=== PATIENT | male | born 1990 | race Caucasian/White ===

== ENCOUNTER 2019-08-03 14:22 | Outpatient (CLI) | payer OTHER | END 2019-08-03 14:52 | disposition home or self-care (01) | LOC: LAB 14:22 | DX: J11.1 Influenza due to unidentified influenza virus with other respiratory manifestations (principal) ==

== ENCOUNTER 2020-08-25 16:01 | Emergency (ER) | payer OTHER ==
[~2020-08-25] VITALS: Ht 177.8 cm; Wt 99.8 kg
[2020-08-25] MEDS ORDERED: MEDROLPACK PO (20:49)
[2020-08-25] MEDS ORDERED: MUCINEX DM ER1 EAC1 PO (20:49)
[2020-08-25] MEDS ORDERED: PROAIR RESPICL90 MCG IH (20:49)
== END 2020-08-25 20:55 | disposition home or self-care (01) ==
LOC: ER 16:01
DX: J06.9 Acute upper respiratory infection, unspecified (principal); J20.9 Acute bronchitis, unspecified; Z03.818 Encounter for observation for suspected exposure to other biological agents ruled out

== ENCOUNTER 2022-09-27 20:09 | Emergency (ER) | payer OTHER ==
[~2022-09-27] VITALS: Ht 177.8 cm; Wt 108.9 kg
[~2022-09-27 20:09] MED LIST: MEDROLPACK PO; MUCINEX DM ER1 EAC1 PO; PROAIR RESPICL90 MCG IH
== END 2022-09-28 04:46 | disposition home or self-care (01) ==
LOC: ER 20:09
DX: B34.9 Viral infection, unspecified (principal); R53.1 Weakness; R09.81 Nasal congestion; Z20.822 Contact with and (suspected) exposure to COVID-19

== ENCOUNTER 2024-07-25 00:24 | Emergency (ER) | payer OTHER ==
[2024-07-25] MEDS ORDERED: METHYLPREDNISOLONE SOD SUCC 125 MG VIAL IV STA (01:53)
[2024-07-25] MEDS ORDERED: HYDROCODONE/CHLORPHEN P-STIREX 5 ML ML PO STA (01:54)
[2024-07-25] MEDS ORDERED: ALBUTEROL SULFATE 3 ML/2.5 MG AMPUL.NEB IH SCH (02:00)
[2024-07-25 02:24] LABS: HEMATOCRIT 44.8 % (39.0-48.0); HEMOGLOBIN 15.2 g/dL (13-16.00); MEAN CELL VOLUME 83.1 fL (80.0-100.00); MEAN CORPUSCULAR HEMOGLOBIN 28.2 pg (27.00-32.0); PLATELET COUNT 328 K/uL (150-450); RED CELL DISTRIBUTION WIDTH 13.8 % (11.5-14.5)
[2024-07-25] MEDS ORDERED: OSEL75CA PO (03:48)
[2024-07-25] MEDS ORDERED: ALBUTEROL2.5 MG/3 M IH (03:48)
[2024-07-25] MEDS ORDERED: PHENAGIL TABLE1 EACH PO (03:48)
[2024-07-25] MEDS ORDERED: ZYNCOF 20-400120 ML PO (03:48)
[2024-07-25] MEDS ORDERED: BUDESONIDE0.5 MG/2 M IH (03:48)
== END 2024-07-25 04:15 | disposition home or self-care (01) ==
LOC: ER 00:26
PROVIDERS: General Practice
DX: R53.81 Other malaise (principal); J10.1 Influenza due to other identified influenza virus with other respiratory manifestations; R05.9 Cough, unspecified; Z20.822 Contact with and (suspected) exposure to COVID-19